=== PATIENT | male | born 1985 | race African-American/Black ===

== ENCOUNTER 2016-10-29 18:11 | Inpatient (IN) | payer OTHER ==
[~2016-10-29] VITALS: Ht 185.4 cm; Wt 137.4 kg
--- NOTE | 2016-10-29 18:18 | NUR ---
Pt co SOB x 2 days; gettiNg worse; had dialysis today; however, not finished dialysis becAUse the " line is infected" - sent by PMD for admission. Placed on monitor. Awaiting md order
[2016-10-29] MEDS ORDERED: VANCOMYCIN 1 GM in IV D5W 250 ML IV ONE (18:30)
[2016-10-29] MEDS ORDERED: IV NS 0.9% 500 ML IV ONE ×2 (18:30→18:31)
[2016-10-29] MEDS ORDERED: IV SET PRIMARY PUMP SET 1 EA INFUS.SET MC ONE ×2 (18:31→21:41)
--- NOTE | 2016-10-29 18:36 | NUR ---
LAC #20 IV ACCESS BLOOD SAMPLE COLLECTED SENT TO LAB
[2016-10-29 18:40] LABS: BASOPHILS % (AUTO) 0.1 % (0.0-2.0); EOSINOPHILS % (AUTO) 0.1 % (0.0-6.0); HEMATOCRIT 32 % (39-51); HEMOGLOBIN 10.7 g/dL (13.5-17.5); LYMPHOCYTES # (AUTO) 0.1 /CMM (0.8-4.8); MEAN CORPUSCULAR HEMOGLOBIN 27 PG (26.0-33.0); MEAN CORPUSCULAR HGB CONC 33 g/dl (31.0-36.0); MEAN CORPUSCULAR VOLUME 81 fL (80-96); MONOCYTES # (AUTO) 0.5 /CMM (0.1-1.30); MONOCYTES % (AUTO) 6.8 % (2.0-12.0); NEUTROPHILS # (AUTO) 6.1 /CMM (1.8-8.9); PLATELET COUNT (AUTO) 219 /CMM (150-450); RDW COEFFICIENT OF VARIATION 14.7 (11.5-15.0); RED BLOOD CELL COUNT(AUTO) 3.98 MIL/uL (4.5-6.0); WHITE BLOOD COUNT (AUTO) 6.7 K/uL (4.3-11.0)
--- NOTE | 2016-10-29 18:40 | NUR ---
OCCUPATIONAL MEDICINE OFFICER AT BEDSIDE
[2016-10-29 18:52] LABS: INR 1.12 (0.87-1.13); PROTHROMBIN TIME 11.7 SECS (9.5-12.7)
[2016-10-29 18:55] LABS: ALBUMIN 3.6 g/dL (3.4-5.0); BILIRUBIN,DIRECT 0.2 mg/dL (0.0-0.2); BILIRUBIN,TOTAL 0.5 mg/dL (0.2-1.0); POTASSIUM 5.6 mmol/L (3.5-5.1); TOTAL PROTEIN, SERUM 8.3 g/dL (6.4-8.2)
[2016-10-29 18:57] LABS: TROPONIN I 0.036 ng/mL (0.00-0.056)
[2016-10-29 18:58] LABS: CREATININE 18.7 mg/dL (0.6-1.3)
[2016-10-29 19:05] LABS: LACTIC ACID 1.4 mmol/L (0.4-2.0)
--- NOTE | 2016-10-29 19:10 | NUR ---
GAVE REPORT TO [facility] FOR [facility]
[2016-10-29] MEDS ORDERED: NIFE30TA91 PO (19:12)
[2016-10-29] MEDS ORDERED: SEVE800T PO (19:12)
--- NOTE | 2016-10-29 19:16 | NUR ---
PT REPORT RECIVED FROM RUSH HUGGINS, PT IN BED AND STATES HE IS HAVING SOME BACK PAIN, MD MADE AWARE WILL CONTINUE TO MONITOR.
[2016-10-29] MEDS ORDERED: SODIUM POLYSTYRENE SULFONATE 15 G/60 ML BOTTLE ONE (19:49)
--- NOTE | 2016-10-29 19:55 | NUR ---
PT IV ANTIBIOTICS STILL MD ERIKA ENDORSED GENTAMICIN TO THE FLOOR.
[2016-10-29] MEDS ORDERED: GENTAMICIN IV ONE (20:00)
[2016-10-29] MEDS ORDERED: SODIUM POLYSTYRENE SULFONATE 15 G/60 ML BOTTLE PO ONE (20:00)
[2016-10-29] MEDS ORDERED: D5W IV ONE (20:00)
[2016-10-29 20:15] VITALS: BP 127/81
--- NOTE | 2016-10-29 21:00 | NUR ---
HAT COPYIST NOTE ADMITTED 31` YEARS OLD MALE PT FROM ER WITH THE DX OF BACTEREMIA BY DR STEVENS. A/O X 4, NO SOB, NO DISTRESS OR DISCOMFORT NOTED. C/O PAIN 8/10 ALL OVER, WILL ADMINISTER PAIN MED. PT IN MRSA CATH SITE. ISOLATION PRECAUTIONS TAKEN. H/L IN LAC # 20 G INTACT AND PATENT. ON TELE S TECH HR 112. ADMITTING ORDERS CHECKED AND CARRIED. ORIENTED THE PT TO HIS ROOM. HEAT PACK APPLIED TO HIS LOWER BACK ON PT'S REQUEST. CONTINUE TO MONITOR HIM. SIDE RAILS UP X 2 AND CALL LIGHT WITHIN REACH.
[2016-10-29] MEDS ORDERED: HYDROMORPHONE 1 MG/1 ML DISP.SYRIN ONE (21:19)
[2016-10-29] MEDS: HYDROMORPHONE 1 MG/1 ML DISP.SYRIN IM/IV PRN (21:27)
--- NOTE | 2016-10-29 21:27 | NUR ---
ELEMENTARY ART TEACHER NOTE PT C/O PAIN EARLIER 01/24 ALL OVER, DILAUDID 0.5 MG IVP GIVEN. ORDERED. CONTINUE TO MONITOR HIM.
[2016-10-29] MEDS ORDERED: SECONDARY IV SET 1 EA INFUS.SET MC ONE (21:41)
[2016-10-29] MEDS ORDERED: IV NS 0.9% 250 ML IV ONE (21:41)
--- NOTE | 2016-10-29 21:45 | NUR ---
OVERNIGHT CASHIER NOTE GENTAMICIN 180 MG IVPB HANGED ORDERED. ER UNABLE TO GIVE IN ER.
--- NOTE | 2016-10-29 21:57 | NUR ---
ADJUNCT PHYSICS INSTRUCTOR NOTE PAIN SUBSIDED /. ALSO GIVEN. HEATING PADS FOR LOWER BACK.
[2016-10-29] MEDS ORDERED: GENTAMICIN IV SCH (22:00)
[2016-10-29] MEDS ORDERED: D5W IV SCH (22:00)
[2016-10-29] MEDS: SEVELAMER CARBONATE 800 MG TABLET PO SCH (22:51)
[2016-10-30] VITALS (8 sets, daily range): BP systolic 122–141; BP diastolic 64–94
[2016-10-30] MEDS ORDERED: VANCOMYCIN 500 MG in IV D5W 100 ML IV PRN (06:00)
--- NOTE | 2016-10-30 06:37 | NUR ---
FUNERAL PLANNING COUNSELOR NOTE PT IN BED AWAKE. NO DISTRESS OR DISCOMFORT NOTED. ON TELE S TECH 112. HEATING PAD GIVEN FOR PAIN RELIEF IN LOWER BACK. PT STATES "IT HELPS ALOT". REPOSITION HIM Q2H FOR COMFORT. SIDE RAILS UP X 2 AND CALL LIGHT WITHIN REACH. WILL ENDORSE TO DAY SHIFT NURSE FOR CONTINUE TO CARE.
[2016-10-30 06:57] LABS: BASOPHILS % (AUTO) 0.1 % (0.0-2.0); EOSINOPHILS % (AUTO) 0.1 % (0.0-6.0); HEMATOCRIT 27 % (39-51); HEMOGLOBIN 8.8 g/dL (13.5-17.5); LYMPHOCYTES # (AUTO) 0.7 /CMM (0.8-4.8); LYMPHOCYTES % (AUTO) 10.7 % (20.0-44.0); MEAN CORPUSCULAR HEMOGLOBIN 27 PG (26.0-33.0); MEAN CORPUSCULAR HGB CONC 33 g/dl (31.0-36.0); MEAN CORPUSCULAR VOLUME 82 fL (80-96); MONOCYTES # (AUTO) 1.1 /CMM (0.1-1.30); NEUTROPHILS # (AUTO) 4.8 /CMM (1.8-8.9); NEUTROPHILS % (AUTO) 73.1 % (43.0-81.0); PLATELET COUNT (AUTO) 185 /CMM (150-450); RDW COEFFICIENT OF VARIATION 15.4 (11.5-15.0); RED BLOOD CELL COUNT(AUTO) 3.27 MIL/uL (4.5-6.0); WHITE BLOOD COUNT (AUTO) 6.6 K/uL (4.3-11.0)
[2016-10-30 07:25] LABS: ALBUMIN 2.7 g/dL (3.4-5.0); BILIRUBIN,TOTAL 0.3 mg/dL (0.2-1.0); CALCIUM, SERUM 8.4 mg/dL (8.5-10.1); MAGNESIUM 2.5 mg/dL (1.8-2.4); POTASSIUM 5.2 mmol/L (3.5-5.1); TOTAL PROTEIN, SERUM 6.6 g/dL (6.4-8.2)
--- NOTE | 2016-10-30 08:00 | NUR ---
CARDIOLOGY SPECIALIST NOTE PATIENT IN BED , ALL NEEDS ATTENDED ,HAVING BREAKFAST, ABLE TO EAT SELF , ON RA SAT 97% , NO SOB NOTED, DILAUDID 0.5 MG IVP GIVEN ORDERED, ON TELE MONITOR ST 114 LAC, HL INTACT NO S\S INFECTION NOTED , BED IN LOWEST AND LOCKED POSITION , CALL LIGHT WITHIN REACH , PLAN OF CARE DISCUSSED WITH PATIENT , WILL CONT TO MONITOR CLOSELY O
[2016-10-30] MEDS: HYDROMORPHONE 1 MG/1 ML DISP.SYRIN IM/IV PRN ×4 (08:01→23:02)
[2016-10-30] MEDS: SEVELAMER CARBONATE 800 MG TABLET PO SCH ×3 (08:02→18:57)
[2016-10-30] MEDS: NIFEdipine XL (30MG) 30 MG TAB PO SCH (08:02)
[2016-10-30 08:21] LABS: PHOSPHORUS 8.8 mg/dL (2.5-4.9)
[2016-10-30 08:22] LABS: CREATININE 18.9 mg/dL (0.6-1.3)
--- NOTE | 2016-10-30 09:37 | NUR ---
WOUND CARE CONSULT: PT PRESENTS WITH OLD HD CATH SITE TO RT CHEST WHICH IS PINK, NO DRAINAGE, NO REDNESS NOTED. DEFER TO MD. DRY GAUZE IN PLACE. PT REFUSED TO TURN FOR FULL SKIN ASSESSMENT OF BACK, SACRAL/BUTTOCK AREA. PT STATES IS CONTINENT. PT ON ABBE ISOFLEX LOW AIRLOSS BED. WILL SEE PRN. BOLAÑOS IN AGREEMENT WITH PLAN OF CARE. Addendum: 10/30/16 at 0939 by ARIANA AMADOR WNDNU Amended: Links added.
[2016-10-30 09:51] LABS: ANISOCYTOSIS 1+; BAND % (MANUAL) 2 % (0.0-5.0); HYPOCHROMASIA 1+; LYMPHOCYTES % (MANUAL) 17 % (16-48); MONOCYTES % (MANUAL) 8 % (0-11.0); NEUTROPHILS % (MANUAL) 73 (42-76); PLATELET ESTIMATE ADEQUATE; TEAR DROP CELLS 1+
--- NOTE | 2016-10-30 10:32 | NUR ---
SHELTER CASE MANAGER NOTE SEEN BY WOUND NURSE ,SEE WOUND ON RT CW ALSO PATIENT REFUSED TO CHECK ON HIS BACK PER WOUND NURSE DR SANTACRUZ WILL COME TO SEE PATIENT , REPORTED TO DR DIAZ THAT BUN 111 CREATINE 18.9 K 5.2 STATED THAT WILL CHECK IT OUT
--- NOTE | 2016-10-30 11:12 | NUR ---
PATIENT ADMITTING REPRESENTATIVE NOTE SPOKE WITH DR DIAZ NOTIFIED THAT PATIENT C\O BACI PAIN IN LOWER SITE ,WITH NEW ORDER X RAY
--- NOTE | 2016-10-30 13:38 | NUR ---
YARD GOODS SALESPERSON NOTE PER DR SANTACRUZ TRIPLE ATB ON RT CW DAILY
--- NOTE | 2016-10-30 14:23 | NUR ---
FENCE MACHINE OPERATOR NOTE CALLED TO DR DIAZ LEFT A MESSAFE ABOUT CLARIFICATION ORDER FOR CT AND X RAY LUMBAR ALSO BLOOD CX
--- NOTE | 2016-10-30 14:30 | NUR ---
DIRECTOR OF HOUSING NOTE SPOKE ANNIE FERRELL NOTIFIED THAT DR DIAZ DID NOT CALL YET STATED THAT WILL CALL TO DR DIAZ
--- NOTE | 2016-10-30 15:32 | NUR ---
TELE RNNOTE CALLED TO DR JOE LOMBARDI TO REPORT BLOOD CX AND CLARIFICATION OF CT AND X RAY ORDER
[2016-10-30] MEDS ORDERED: FEE PK DOSING 1 MIN EA MC ONE (15:35)
--- NOTE | 2016-10-30 15:37 | NUR ---
DATA ANALYST NOTE PER DR DE LA ROSA ORDER OK TO GET CONSENT FOR HD CATH INSERTION
[2016-10-30] MEDS: NEOMY SULF/BACITRAC ZN/POLY 15 GM TUBE TP SCH (16:07)
--- NOTE | 2016-10-30 18:25 | NUR ---
television producer note dr carrizales at bedside inserting hd cath
--- NOTE | 2016-10-30 18:57 | NUR ---
television repairer note lt ij hd cath inserted by dr carrizales ,keep clean dry s Dilaudid 0.54 mg ivp given as ordered ,bp 162/78 sat 98% , chest x ray done Addendum: 11/01/16 at 1100 by SUZAN LUONG RN CORRECTION 0.5 MG OF DILAUDID
--- NOTE | 2016-10-30 19:16 | NUR ---
telephone operators supervisor note having dinner, not in distress
[2016-10-30] MEDS: ACETAMINOPHEN 325 MG TABLET PO PRN (19:55)
--- NOTE | 2016-10-30 20:00 | NUR ---
DRAGGER NOTE PT IN BED ASLEEP, AROUSABLE. PT IS RUNNING FEVER 101 AT THIS TIME. TYLENOL 650 MG PO GIVEN. ALSO BODY COOLING MEASURES APPLIED. WILL RECHECK WITH TEMP LATER. DENIES PAIN. HD CATH IN [facility] IN PLACE INTACT. DRESSING ON RC[facility] OLD HD CATH SITE I/C/D. H/L IN LAC # 20 G INTACT AND PATENT. REPOSITION HIM FOR COMFORT. SIDE RAILS UP X 2 AND CALL LIGHT WITHIN REACH. CONTINUE TO MONITOR HIM. Addendum: 10/30/16 at 2046 by PAMELA CAMPUZANO RN ON [employer] HR 120.
--- NOTE | 2016-10-30 22:00 | NUR ---
PVC LOADER NOTE NOTED PT TEMP WENT UP TO 103, COLD WATER BED BATH GIVEN. ALSO INFORMED DR EDGAR MD GAVE NEW ORDER, ORDER NOTED AND CARRIED OUT. STAT CT LUMBAR, SPINE ORDER IN PLACE.
[2016-10-30] MEDS ORDERED: SECONDARY IV SET 1 EA INFUS.SET MC ONE (22:23)
[2016-10-30] MEDS ORDERED: IV NS 0.9% 50 ML IV ONE (22:23)
--- NOTE | 2016-10-30 22:38 | NUR ---
SOLUTIONS ANALYST NOTE CT SCAN IN PROGRESS. PT IN NO DISTRESS. CONTINUE TO MONITOR HIM.
[2016-10-30] MEDS ORDERED: MEROPENEM 500 MG VIAL IV ONE (22:40)
[2016-10-30] MEDS: MEROPENEM 500 MG in IV NS 0.9% 50 ML IV SCH (23:03)
--- NOTE | 2016-10-30 23:14 | NUR ---
SHELLS INSPECTOR NOTE PT CAME BACK TO CT SCAN. C/O PAIN LOWER BACK 01/24, DILAUDID 0.5 MG IVP GIVEN. ALSO HANGED MERREM 500 MG ORDERED BY . TEMP CAME DOWN TO 98.6. CONTINUE TO MONITOR.
--- NOTE | 2016-10-30 23:45 | NUR ---
MORTGAGE ADVISOR NOTE PAIN SUBSIDED 2/, PT FALLING ASLEEP.
[2016-10-31] VITALS (19 sets, daily range): BP systolic 108–168; BP diastolic 68–96
[2016-10-31] MEDS: HYDROMORPHONE 1 MG/1 ML DISP.SYRIN IM/IV PRN ×4 (06:13→19:54)
--- NOTE | 2016-10-31 06:19 | NUR ---
FIELD OBSERVER NOTE PT C/O PAIN IN ALL OVER 01/24, DILAUDID 0.5 MG IVP GIVEN. NO FEVER NOTED.
--- NOTE | 2016-10-31 06:27 | NUR ---
PATTERN CUTTER NOTE PT IN BED ASLEEP, AROUSABLE, PAIN SUBSIDED /10. H/L INTACT AND PATENT. ON TELE S TECH HR 115. KEPT HIM DRY AND CLEAN. NO FEVER NOTED. VSS. SIDE RAILS UP X 3 AND CALL LIGHT WITHIN REACH. WILL ENDORSE TO DAY SHIFT NURSE FOR CONTINUE TO CARE.
[2016-10-31 07:07] LABS: APPEARANCE,URINE SL CLOUDY (CLEAR); BILIRUBIN,URINE NEGATIVE (NEGATIVE); BLOOD, URINE 2+ Ery/uL (NEGATIVE); COLOR,URINE YELLOW (YELLOW); KETONES,URINE NEGATIVE (NEGATIVE); LEUKOCYTE ESTERASE ,URINE TRACE (NEGATIVE); NITRITE, URINE POSITIVE (NEGATIVE); PROTEIN,URINE 2+ mg/dl (NEGATIVE); UGLUCOSE NEGATIVE (NEGATIVE); UROBILINOGEN,URINE 0.2 EU/dL (0.2)
[2016-10-31 07:18] LABS: ADD URINE CULTURE YES; BACTERIA,URINE Rare /HPF (None Seen); SQUAMOUS EPITHELIAL CELL,UR 0-2 /HPF (None Seen)
[2016-10-31] MEDS ORDERED: GENTAMICIN IV PRN (07:30)
[2016-10-31] MEDS ORDERED: FEE PK DOSING 1 MIN EA MC ONE (07:30)
[2016-10-31] MEDS ORDERED: D5W IV PRN (07:30)
--- NOTE | 2016-10-31 07:50 | NUR ---
MONKEY TRAINER AM NOTES RECEIVED PT IN BED WITH BLOOD IN HIS MOUTH AND WAS HYPERVENTILATING.AROUSABLE AND VERBALLY RESPONSIVE BUT LETHARGIC.SUCTIONED BLOODY SECRETIONS-MODERATE IN AMT. PT APPEARS TO HAVE POSTICTAL EPISODE. BP 162/84 HR 137 RR 24 T 99.2 ADMINISTERED 02 AT 6L/MIN VIA MASK O2 SAT 92%.BLOOD SUGAR 136.HD CATH IN [facility] IN PLACE INTACT. DRESSING ON RCW OLD HD CATH SITE I/C/D. H/L IN LAC # 20 G INTACT AND PATENT.ALL AM LABS PENDING.NOTIFIED DR CHULA STEVENS.STAT ABG DONE. REPOSITION HIM FOR COMFORT. KEPT CLEAN AND DRY.SIDE RAILS UP X 2 AND CALL LIGHT WITHIN REACH. CONTINUE TO MONITOR HIM.
[2016-10-31 07:55] LABS: ALBUMIN 2.6 g/dL (3.4-5.0); BILIRUBIN,TOTAL 0.3 mg/dL (0.2-1.0); CALCIUM, SERUM 8.5 mg/dL (8.5-10.1); MAGNESIUM 2.4 mg/dL (1.8-2.4); POTASSIUM 4.9 mmol/L (3.5-5.1); TOTAL PROTEIN, SERUM 6.8 g/dL (6.4-8.2)
--- NOTE | 2016-10-31 08:00 | NUR ---
PT. ON RESPIRATORY DISTRESS,TACHYPNEIC W/ FROTHY BLOODY MOUTH DISCHARGE,RAPID RESPONSE CALLED,DR. ANN NOTIFIED AND ORDERED STAT CT HEAD,ABG PENDING.
[2016-10-31 08:05] LABS: BASOPHILS % (AUTO) 0.2 % (0.0-2.0); HEMATOCRIT 27 % (39-51); HEMOGLOBIN 8.9 g/dL (13.5-17.5); LYMPHOCYTES # (AUTO) 0.8 /CMM (0.8-4.8); LYMPHOCYTES % (AUTO) 8.5 % (20.0-44.0); MEAN CORPUSCULAR HEMOGLOBIN 27 PG (26.0-33.0); MEAN CORPUSCULAR HGB CONC 33 g/dl (31.0-36.0); MEAN CORPUSCULAR VOLUME 81 fL (80-96); MONOCYTES # (AUTO) 1.3 /CMM (0.1-1.30); MONOCYTES % (AUTO) 13.4 % (2.0-12.0); NEUTROPHILS # (AUTO) 7.5 /CMM (1.8-8.9); NEUTROPHILS % (AUTO) 77.9 % (43.0-81.0); PLATELET COUNT (AUTO) 206 /CMM (150-450); RDW COEFFICIENT OF VARIATION 15.2 (11.5-15.0); RED BLOOD CELL COUNT(AUTO) 3.34 MIL/uL (4.5-6.0); WHITE BLOOD COUNT (AUTO) 9.6 K/uL (4.3-11.0)
--- NOTE | 2016-10-31 08:29 | NUR ---
WENT TO CT SCAN VIA ACLS PROTOCOL AND WILL BE TRANSFERRED TO ICU ROOM 257.
--- NOTE | 2016-10-31 08:30 | NUR ---
TRANSFERRED PT TO ICU RO0M 257 AND GAVE REPORT TO BHAVNA TOBAR AND ENDORSED PT'S MEDS AND BELONGINGS.PT WAS AWAKE,ALERT AND VERBALLY RESPONSIVE AND WAS MADE AWARE OF THE TRANSFER.
[2016-10-31 08:42] LABS: CREATININE 21.5 mg/dL (0.6-1.3)
[2016-10-31 08:44] LABS: PHOSPHORUS 11.1 mg/dL (2.5-4.9)
[2016-10-31 08:51] LABS: ABG BASE EXCESS -12.9 mmol/L; ABG OXYGEN SATURATION 95.9 % (92.0-98.5); ABG PCO2 27.1 mmHg (35.0-45.0); ABG PH 7.279 (7.350-7.450); ABG PO2 106.1 mmHg (75.0-100.0); ABG TOTAL HEMOGLOBIN 9.9 G/dL (13.5-18.0); AaDO2 219.9 mmHg; COHb 0.8 % (0.5-1.5); O2Hb 94.2 % (94.0-97.0); SITE, ABG Right Radial; VENT MODE, BG 6L SIMPLE MASK
[2016-10-31] MEDS: NEOMY SULF/BACITRAC ZN/POLY 15 GM TUBE TP SCH (09:19)
[2016-10-31] MEDS: NIFEdipine XL (30MG) 30 MG TAB PO SCH (09:24)
--- NOTE | 2016-10-31 09:30 | NUR ---
ICU/RN - Notes Received pt from Telemetry via bed post rapid response. Pt alert and oriented x3, does not recall what happened. Pt reoriented to events leading up to transfer to ICU. Tachycardic on manager cardiac HR 120's. On o2 @ 6lpm via simple mask, with O2 saturation 95%. Pt noted with twitching jerks. Pt currently complaining of back pain, uses own heating pad to aid with pain relief. Dr Fuentes at bedside for evaluation. Will continue to monitor pt closely.
[2016-10-31] MEDS ORDERED: IV SET PRIMARY PUMP SET 1 EA INFUS.SET MC ONE (09:56)
[2016-10-31] MEDS: LEVETIRACETAM SOL (5 ML) 100 MG/ML UDC PO SCH ×2 (10:03→21:10)
[2016-10-31] MEDS: IV NS 0.9% 250 ML IV PRN (10:03)
--- NOTE | 2016-10-31 10:09 | NUR ---
ICU/RN - Notes Pt complains of left lower back pain on pain scale 8 out of 10. Administered Dilaudid 0.5mg IVP as ordered for PRN pain. Comfort measures rendered. Will reassess pain accordingly.
--- NOTE | 2016-10-31 10:57 | NUR ---
ICU/RN - Notes Droplet precautions discontinued per Dr Booker (Infectious Disease).
[2016-10-31] MEDS ORDERED: SECONDARY IV SET 1 EA INFUS.SET MC ONE ×3 (11:08→13:20)
[2016-10-31] MEDS: MEROPENEM 500 MG in IV NS 0.9% 50 ML IV SCH (11:17)
[2016-10-31 11:25] LABS: ABG BASE EXCESS -8.3 mmol/L; ABG OXYGEN SATURATION 97.6 % (92.0-98.5); ABG PCO2 29.6 mmHg (35.0-45.0); ABG PH 7.355 (7.350-7.450); ABG PO2 126.4 mmHg (75.0-100.0); ABG TOTAL HEMOGLOBIN 9.4 G/dL (13.5-18.0); AaDO2 196.8 mmHg; MetHb 0.8 % (0.0-1.5); O2Hb 95.8 % (94.0-97.0); SITE, ABG Right Radial; VENT MODE, BG SM 6L
[2016-10-31] MEDS ORDERED: LEVETIRACETAM (500MG) 500 MG in IV NS 0.9% 100 ML IV STA (11:25)
--- NOTE | 2016-10-31 12:00 | NUR ---
ICU/RN - Notes Pt refuses to be turned to side, prefers to lay supine, states "I have a lot of pain if I move to my side."
[2016-10-31] MEDS ORDERED: IV NS 0.9% 1,000 ML IV PRN (13:00)
[2016-10-31] MEDS ORDERED: IOHEXOL-300 100 ML VIAL IV ONE (13:29)
[2016-10-31] MEDS ORDERED: CT SWABBABLE VALVE TRANS SET 1 EA INFUS.SET MC ONE (13:29)
[2016-10-31] MEDS ORDERED: IV NS 0.9% 250 ML IV ONE (13:29)
--- NOTE | 2016-10-31 14:15 | NUR ---
ICU/RN - Notes Pt back from CT, requesting for heating pad to be placed back on lower back. Upon turning pt, lower back noted with new blisters. Cleansed site and placed mepilex dressing. Wound consult re-triggered. Provided education to pt regarding turning and repositioning ever 2 hours to prevent further skin breakdown. Pt verbalizes understanding but still refuses to turn to side q2h.
[2016-10-31] MEDS: SEVELAMER CARBONATE 800 MG TABLET PO SCH ×2 (14:27→17:12)
--- NOTE | 2016-10-31 14:30 | NUR ---
ICU/RN - Notes Pt taken to radiology for CT. Addendum: 10/31/16 at 1800 by AUBREY ALONZO RN Intervention done at 1350
[2016-10-31] MEDS ORDERED: VANCOMYCIN 1 GM in IV D5W 250 ML IV SCH (16:00)
[2016-10-31] MEDS ORDERED: VANCOMYCIN 1 GM in IV D5W 250 ML IV ONE (16:00)
[2016-10-31] MEDS: PIPERACILLIN /TAZOBACTAM 2.25 G in IV D5W 50 ML IV SCH ×2 (16:25→21:00)
--- NOTE | 2016-10-31 20:00 | NUR ---
Received patient A/O X 4.Febrile 101.7 orally.ST 115-120'S.On 4L NC in progress saturation 98%. Respiration even and unlabored.Patient complaints of lower back pain 7/10 on pain scale.Dilaudid administered as PRN with heating pad in place.Turned and repositioned.Plan of care discussed with patient and verbalized understanding.Cooling measures done and will give Tylenol for fever per order.
[2016-10-31] MEDS: ACETAMINOPHEN 325 MG TABLET PO PRN (20:18)
--- NOTE | 2016-10-31 21:00 | NUR ---
Patient resting verbalized pain subsiding.Transferred to [place] [id number] bed.Noted blisters to left lower back with mepilex in place.Patient refused heating pad to be removed.Turned and repositioned to comfort.Educated patient on bed mechanism.
[2016-11-01] VITALS (25 sets, daily range): BP systolic 93–136; BP diastolic 44–87
[2016-11-01 04:46] LABS: BASOPHILS % (AUTO) 0.1 % (0.0-2.0); HEMATOCRIT 28 % (39-51); HEMOGLOBIN 9.1 g/dL (13.5-17.5); LYMPHOCYTES # (AUTO) 0.8 /CMM (0.8-4.8); LYMPHOCYTES % (AUTO) 7.3 % (20.0-44.0); MEAN CORPUSCULAR HEMOGLOBIN 27 PG (26.0-33.0); MEAN CORPUSCULAR HGB CONC 33 g/dl (31.0-36.0); MEAN CORPUSCULAR VOLUME 82 fL (80-96); MONOCYTES # (AUTO) 1.7 /CMM (0.1-1.30); MONOCYTES % (AUTO) 16.1 % (2.0-12.0); NEUTROPHILS # (AUTO) 7.9 /CMM (1.8-8.9); NEUTROPHILS % (AUTO) 76.5 % (43.0-81.0); PLATELET COUNT (AUTO) 234 /CMM (150-450); RDW COEFFICIENT OF VARIATION 15.5 (11.5-15.0); RED BLOOD CELL COUNT(AUTO) 3.38 MIL/uL (4.5-6.0); WHITE BLOOD COUNT (AUTO) 10.4 K/uL (4.3-11.0)
[2016-11-01] MEDS: PIPERACILLIN /TAZOBACTAM 2.25 G in IV D5W 50 ML IV SCH ×3 (04:55→20:15)
[2016-11-01 05:12] LABS: CALCIUM, SERUM 8.7 mg/dL (8.5-10.1); MAGNESIUM 2.5 mg/dL (1.8-2.4); POTASSIUM 4.7 mmol/L (3.5-5.1)
[2016-11-01 05:18] LABS: CREATININE 16.3 mg/dL (0.6-1.3); PHOSPHORUS 10.3 mg/dL (2.5-4.9)
--- NOTE | 2016-11-01 05:35 | NUR ---
Patient AM labs resulted Phosphorus 10.3.BUN 96,Creat 16.3.Paged for orders.
[2016-11-01] MEDS ORDERED: VANCOMYCIN 500 MG in IV D5W 100 ML IV PRN (06:00)
--- NOTE | 2016-11-01 06:25 | NUR ---
Patient resting latest temp 99.1.AM care done.SR/ST 99-119.No new complaints presented.No seizure activity noted.Turned and repositioned.All due medications administered.Safety measures maintained with call light at bedside.
[2016-11-01] MEDS: NIFEdipine XL (30MG) 30 MG TAB PO SCH (08:00)
[2016-11-01] MEDS: SEVELAMER CARBONATE 800 MG TABLET PO SCH ×3 (08:00→17:51)
[2016-11-01] MEDS: LEVETIRACETAM SOL (5 ML) 100 MG/ML UDC PO SCH ×2 (08:00→20:15)
[2016-11-01] MEDS: IV NS 0.9% 250 ML IV PRN (08:00)
[2016-11-01] MEDS: HYDROMORPHONE 1 MG/1 ML DISP.SYRIN IM/IV PRN ×4 (08:00→20:16)
--- NOTE | 2016-11-01 08:00 | NUR ---
ICU/RN - Notes Pt complains of back pain on pain scale 8 out of 10. Administered Dilaudid 0.5mg IVP as ordered for PRN pain. Comfort measures rendered. Will reassess pain accordingly.
--- NOTE | 2016-11-01 08:15 | NUR ---
WOUND CARE CONSULT PATIENT SEEN AND LEFT LOWER BACK REGION EVALUATED. PATIENT PRESENTS WITH LARGE AREA OF OPEN AND CLOSED BLISTERING NOTED TO BE PRESENT. PLEASE SEE SCHOOL ADJUSTMENT COUNSELOR ASSESSMENT IN [facility] FOR TODAY. I AM UNABLE TO DETERMINE IF THIS A 2ND OR 3RD DEGREE BURN AT THIS TIME AND IT IS DEVICE RELATED. PATIENT HAS BEEN USING HIS OWN HEATING PAD FROM HOME. I NOTIFIED DR NOAM OSHEA WHO WILL ALSO EVALUATED. I MADE RECOMMENDATIONS FOR TREATMENT AND RECEIVED ORDERS FROM SURGEON AT THIS TIME. RECOMMENDATIONS MADE FOR NO FURTHER USE OF HEATING PAD AT THIS TIME AND DISCUSSED WITH NURSING STAFF AND PATIENT AND PATIENT UNDERSTANDS AND IS IN AGREEMENT. TREATMENT PLAN DISCUSSED WITH NURSING STAFF AT THE BEDSIDE. Addendum: 11/01/16 at 0820 by AGATA CHI WNDNU Amended: Links added.
[2016-11-01] MEDS: NEOMY SULF/BACITRAC ZN/POLY 15 GM TUBE TP SCH (08:19)
[2016-11-01] MEDS ORDERED: SILVER SULFADIAZINE CREAM 25 GM TUBE TP SCH (09:00)
--- NOTE | 2016-11-01 10:00 | NUR ---
ICU/RN - Notes Pt cleared for Telemetry status per Dr Fuentes.
--- NOTE | 2016-11-01 13:10 | NUR ---
ICU/RN - Notes Hemodialysis completed with 2.5 L output. Vital signs stable.
--- NOTE | 2016-11-01 16:53 | NUR ---
ICU/RN - Notes Pt complains of back pain on pain scale 8 out of 10. Administered Dilaudid 0.5 mg IVP as ordered for PRN pain. Comfort measures rendered. Will reassess pain accordingly.
--- NOTE | 2016-11-01 18:25 | NUR ---
ICU/RN - Notes Pt complains of unrelieved back pain, administered [place] 10/325 1 tab as ordered for PRN pain. Comfort measures rendered. Will reassess pain accordingly.
[2016-11-01] MEDS ORDERED: HYDROCODONE/APAP 10/325MG 1 EA TABLET PO PRN (18:30)
--- NOTE | 2016-11-01 19:40 | NUR ---
Received patient resting verbalized pain subsiding.Feverish 100.5.Cooling measures done.ST 103. Normotensive.Respiration even and unlabored with O2 4L NC SPO2 97%.IV LAC gauge 20 intact. NS at TKO infusing.Patient for transfer to [facility] at 2100.
[2016-11-01] MEDS: ACETAMINOPHEN 325 MG TABLET PO PRN (20:08)
--- NOTE | 2016-11-01 23:04 | NUR ---
Patient left via gurney per ACLS protocol in stable condition going to [facility] Rm 3201..VS stable.Report given to form layerGabriela with PRN Tube Cutter unit no #[id number].All belongings given to patient.Report given to Meagan David RN IN [place].
== END 2016-11-01 23:04 | disposition short-term general hospital (02) | DRG 314 ==
LOC: ER 18:13 → TELE-TD 20:22 → TELE1 20:35 → ICU 10-31 08:24
PROVIDERS: ADMIT Internal Medicine Nephrology; ATTEND Internal Medicine
PROC: 02HV33Z Insertion of Infusion Device into Superior Vena Cava, Percutaneous Approach (ICD-10-PCS; principal; 2016-10-29)
PROC: B548ZZA Ultrasonography of Superior Vena Cava, Guidance (ICD-10-PCS; principal; 2016-10-29)
PROC: 5A1D60Z (ICD-10-PCS; 2016-10-31)
DX: T80.211A Bloodstream infection due to central venous catheter, initial encounter (principal); A41.9 Sepsis, unspecified organism; N18.6 End stage renal disease; R65.20 Severe sepsis without septic shock; T82.7XXA Infection and inflammatory reaction due to other cardiac and vascular devices, implants and grafts, initial encounter; I12.0 Hypertensive chronic kidney disease with stage 5 chronic kidney disease or end stage renal disease; D62 Acute posthemorrhagic anemia; N17.9 Acute kidney failure, unspecified; T82.898A Other specified complication of vascular prosthetic devices, implants and grafts, initial encounter; Z99.2 Dependence on renal dialysis; Y83.9 Surgical procedure, unspecified as the cause of abnormal reaction of the patient, or of later complication, without mention of misadventure at the time of the procedure; Y92.009 Unspecified place in unspecified non-institutional (private) residence as the place of occurrence of the external cause; G40.909 Epilepsy, unspecified, not intractable, without status epilepticus; B95.61 Methicillin susceptible Staphylococcus aureus infection as the cause of diseases classified elsewhere; D64.9 Anemia, unspecified; E66.9 Obesity, unspecified; E83.39 Other disorders of phosphorus metabolism; F17.200 Nicotine dependence, unspecified, uncomplicated; T21.24XA Burn of second degree of lower back, initial encounter; M51.27 Other intervertebral disc displacement, lumbosacral region; X16.XXXA Contact with hot heating appliances, radiators and pipes, initial encounter; Y84.8 Other medical procedures as the cause of abnormal reaction of the patient, or of later complication, without mention of misadventure at the time of the procedure; Z86.73 Personal history of transient ischemic attack (TIA), and cerebral infarction without residual deficits
CPT/HCPCS: 36415; 36600; 70450-TC; 71010-TC; 72131-TC; 72132-TC; 72193-TC; 80048-TC; 80053-TC; 80076-TC; 80170-TC; 80202-TC; 81000-TC; 82962-TC; 83605-TC; 83735-TC; 84100-TC; 84484-TC; 85025-TC; 85730-TC; 87040-TC; 87081-TC; 87086-TC; 93307-TC; A4216; A4606; A6402; A6403; J1170; J1580; J1953; J2185; J2543; J3370; J7030; J7040; J7050; J7060; Q9967; Z7610